=== PATIENT | male | born 1990 | race Caucasian/White ===

== ENCOUNTER 2023-10-11 20:21 | Emergency (ER) | payer BC ==
[2023-10-11] MEDS ORDERED: Lidocaine 1% 5 ML VIAL INJECT ONE (20:29)
[2023-10-11 20:31] VITALS: BP 144/94; PULSE 73
[2023-10-11] MEDS ORDERED: Octyl 2-Cyanoacrylate 1 g/1 mL 1 APPLIC PEN TOP ONE (20:38)
== END 2023-10-11 20:55 | disposition home or self-care (01) ==
LOC: MW.ED 20:21
DX: S61.012A Laceration without foreign body of left thumb without damage to nail, initial encounter (principal); Z88.0 Allergy status to penicillin; W26.8XXA Contact with other sharp object(s), not elsewhere classified, initial encounter
CPT/HCPCS: 12001; 99282; A9270

== ENCOUNTER 2024-02-17 11:20 | Emergency (ER) | payer BC ==
[2024-02-17 11:39] VITALS: BP 141/91; PULSE 65
[2024-02-17] MEDS ORDERED: Tranexamic Acid 1,000 MG/10 ML Vial TOP ONE (12:23)
[2024-02-17] MEDS: Tranexamic Acid 1,000 MG/10 ML Vial TOP ONE (12:35)
== END 2024-02-17 13:22 | disposition home or self-care (01) ==
LOC: MW.ED 11:20
DX: S61.101A Unspecified open wound of right thumb with damage to nail, initial encounter (principal); Z75.8 Other problems related to medical facilities and other health care; W26.8XXA Contact with other sharp object(s), not elsewhere classified, initial encounter
CPT/HCPCS: 99282; 99283; J3490

== ENCOUNTER 2024-04-07 08:16 | Emergency (ER) | payer OTHER, BC ==
[2024-04-07 08:32] VITALS: BP 129/89; PULSE 63
[2024-04-07] MEDS: Lidocaine 1% 5 ML VIAL INJECT ONE (08:37)
== END 2024-04-07 10:17 | disposition home or self-care (01) ==
LOC: MW.ED 08:16
DX: S51.811A Laceration without foreign body of right forearm, initial encounter (principal); Z88.0 Allergy status to penicillin; W22.8XXA Striking against or struck by other objects, initial encounter; Y93.89 Activity, other specified
CPT/HCPCS: 12002; 73080-26-RT; 73080-RT; 99283; J3490